=== PATIENT | female | born 1995 | race Caucasian/White ===

== ENCOUNTER 2019-06-02 06:38 | Emergency (ER) | payer OTHER, MEDICAID ==
[~2019-06-02] VITALS: Ht 162.6 cm; Wt 72.6 kg
[~2019-06-02 06:38] MED LIST: AMOXICILLIN875 MG PO; BENTYL 10 MG CA10 MG PO; NORCO 5-325 TA1 EACH PO; PRILOSEC40 MG; VITAMIN D400 UNI1; ZOFRAN4 MG PO
[2019-06-02] MEDS ORDERED: PNV 29-1 TABLE1 EACH PO (06:50)
[2019-06-02 07:13] LABS: URINE BILIRUBIN NEGATIVE (Negative); URINE BLOOD NEGATIVE (Negative); URINE CLARITY CLEAR; URINE COLOR YELLOW; URINE GLUCOSE-RANDOM NEGATIVE (Negative); URINE KETONES NEGATIVE (Negative); URINE LEUKOCYTES-REFLEX NEGATIVE (Negative); URINE NITRITE-REFLEX NEGATIVE (Negative); URINE PROTEIN NEGATIVE (Negative); URINE SPECIFIC GRAVITY 1.015 (1.005-1.030); URINE UROBILINOGEN 0.2 E.U./dl (0.2-1.0)
[2019-06-02 07:40] VITALS: BP 122/66
== END 2019-06-02 07:41 | disposition short-term general hospital (02) ==
LOC: M.ERS 06:38
PROVIDERS: Emergency Medicine
DX: O26.892 Other specified pregnancy related conditions, second trimester (principal); R10.84 Generalized abdominal pain; O99.612 Diseases of the digestive system complicating pregnancy, second trimester; Z3A.27 27 weeks gestation of pregnancy

== ENCOUNTER 2019-11-14 14:39 | Emergency (ER) | payer OTHER, MEDICAID ==
[~2019-11-14] VITALS: Ht 162.6 cm; Wt 77.1 kg
[~2019-11-14 14:39] MED LIST changes: +PNV 29-1 TABLE1 EACH PO
[2019-11-14 15:20] LABS: URINE BILIRUBIN NEGATIVE (Negative); URINE BLOOD 3+ (Negative); URINE COLOR YELLOW; URINE GLUCOSE-RANDOM NEGATIVE (Negative); URINE KETONES NEGATIVE (Negative); URINE LEUKOCYTES NEGATIVE (Negative); URINE NITRITE NEGATIVE (Negative); URINE PROTEIN NEGATIVE (Negative); URINE SPECIFIC GRAVITY >= 1.030 (1.005-1.030); URINE UROBILINOGEN 0.2 E.U./dl (0.2-1.0)
[2019-11-14 15:23] LABS: URINE CLARITY HAZY
[2019-11-14 15:31] LABS: BACTERIA None Seen /HPF (None Seen); CASTS None Seen /LPF (None Seen); MUCUS 0-3 Light strn/LPF (None Seen); SQUAMOUS 4-10 Moderate /LPF (0-3); URINE RBC 3-10 Few /HPF (0-2); URINE WBC None Seen /HPF (0-5)
[2019-11-14 15:32] LABS: CRYSTALS None Seen /LPF (None Seen)
[2019-11-14 16:12] LABS: ABSOLUTE BASOPHILS 0.1 thou/uL (0.0-0.2); ABSOLUTE EOSINOPHILS 0.5 thou/uL (0.0-0.7); ABSOLUTE LYMPHOCYTES 3.2 thou/uL (0.8-5.3); ABSOLUTE MONOCYTES 0.9 thou/uL (0.0-1.2); ABSOLUTE NEUTROPHILS 6.7 thou/uL (1.6-8.1); BASOPHILS 0.7 %; EOSINOPHILS 4.7 %; HEMATOCRIT 41.6 % (37.0-47.0); HEMOGLOBIN 13.9 gm/dL (12.0-15.0); LYMPHOCYTES 28.4 %; MCH 31.6 pg (26.0-34.0); MCHC 33.5 g/dL (28.0-37.0); MCV 94.3 fL (80.0-100.0); MONOCYTES 7.8 %; NUCLEATED RBCS 0 /100WBC; PLATELET COUNT* 325 thou/uL (150-400); POLYS 58.4 %; RBC 4.41 mil/uL (4.20-5.00); RDW-CV 13.6 % (10.5-14.5); WBC 11.4 thou/uL (4.0-11.0)
[2019-11-14 16:22] LABS: APTT 23.6 Seconds (25.0-31.3)
[2019-11-14 16:23] LABS: CALCIUM 8.5 mg/dL (8.5-10.1); CREATININE 0.9 mg/dL (0.6-1.3)
[2019-11-14 16:27] LABS: ALBUMIN 3.3 g/dL (3.4-5.0); TOTAL BILIRUBIN 0.5 mg/dL (<0.1-1.0)
[2019-11-14 16:55] VITALS: BP 113/68
--- NOTE | 2019-11-17 16:08 | EKG ---
[place] [address] ELECTROCARDIOGRAM REPORT Name: FRED QUIÑONES Room: [facility]#: [id number] Admission: 11/14/19 Attend Phys: Discharge: 11/14/19 Date of : [birth year] Date of Service: 11/14/19 1505 Report #: [id number] THIS REPORT FOR: //name// [facility] ED Test Date: 2019-11-14 Test Time: 15:05:36 Pat Name: FRED QUIÑONES Department: Room: Gender: Maintenance Painter: [facility] : 1995 Requested By: Jana Headley Order Number: [id number] : Roger Patel Measurements Intervals [place] Rate: 75 P: 49 ME: 153 QRS: 82 QRSD: 96 T: 40 QT: 393 QTc: 439 Interpretive Statements Sinus rhythm with sinus arrhythmia No previous ECG available for comparison Electronically Signed On 11-17-2019 16:06:27 CDT by Roger Patel [email or web address] <ELECTRONICALLY SIGNED> By: Roger Patel MD, [facility] 11/17/19 1606 1505 1505 Roger Patel MD, FACC /EPI
== END 2019-11-14 16:55 | disposition home or self-care (01) ==
LOC: M.ERS 14:39
PROVIDERS: Physician Assistant
DX: N92.0 Excessive and frequent menstruation with regular cycle (principal); K21.9 Gastro-esophageal reflux disease without esophagitis; F17.210 Nicotine dependence, cigarettes, uncomplicated